=== PATIENT | female | born 1970 | race Caucasian/White ===

== ENCOUNTER 2016-12-27 07:58 | Day surgery (SDC) | payer OTHER ==
[~2016-12-27] VITALS: Ht 154.9 cm; Wt 74.5 kg
[~2016-12-27 07:58] MED LIST: AMLO5TAB2 PO; PERC5TAB12 PO; ZOFR4TAB3 SL
[2016-12-27] MEDS ORDERED: SODIUM CHLOR 0.9% 1000 ML IV SCH (08:15)
[2016-12-27 08:16] VITALS: BP 175/107; PULSE 67; RESP 20; TEMP 97.8; O2SAT 97
[2016-12-27] MEDS ORDERED: LIDOCAINE HCL 1% 20 ML VIAL ONE (09:07)
[2016-12-27] MEDS ORDERED: SODIUM BICARBONATE 8.4% INJ 50 ML ONE (09:08)
[2016-12-27] MEDS ORDERED: fentaNYL CITRATE 250 MCG/5 ML AMP ONE (09:29)
[2016-12-27] MEDS ORDERED: MIDAZOLAM HCL 5 MG/5 ML VIAL ONE (09:29)
[2016-12-27 10:55] VITALS: BP 160/85; PULSE 57; RESP 20; TEMP 97.6; O2SAT 93
--- NOTE | 2016-12-27 11:02 | PD.RAD ---
Post CT Procedure Prog Note Pre Procedure Diagnosis: (1) Renal cyst, left Post Procedure Diagnosis: (1) Renal cyst, left Procedure Date: December 27, 2016 Supervising Radiologist: Sander Dyer Proceduralist/Assist: Eleanor Chavez RT(R)(CT) Estimated blood loss: Minimal Anesthesia: Conscious Sedation Plan of Activity Patient to Unit: ROPU Patient Condition: Good See PACS Report for procedural detail/treatment Drainage Procedure Procedure 1 Imaging Guidance: CT Side: Left Procedure Type: Aspiration (and slcerosis) [place]: 8 ([place]) Fluid Removal (CCs): 200 Fluid Description: Clear, Yellow, Simple Sander Dyer MD December 27, 2016 11:02
[2016-12-27 11:10] VITALS: BP 150/87; PULSE 57; RESP 20; O2SAT 93
[2016-12-27] MEDS ORDERED: oxyCODONE/ACETAMINOPHEN 5 MG/325 MG TAB PO PRN (11:15)
[2016-12-27 11:40] VITALS: BP 123/64; PULSE 63; RESP 16; O2SAT 97
[2016-12-27 12:10] VITALS: BP 132/67; PULSE 61; RESP 16; O2SAT 96
[2016-12-27 12:40] VITALS: BP 159/93; PULSE 65; RESP 16; O2SAT 98
--- NOTE | 2016-12-27 12:42 | RADRPT ---
EXAM DATE/TIME: 12/27/2016 09:32 [place] COMPARISON: No previous studies available for comparison. INDICATIONS : Left renal cyst. SEDATION TIME: 30 minutes MEDICATION(S): 1.) 3 mg midazolam (Versed) IV 2.) 150 mcg fentanyl (Sublimaze) IV DEVICE(S): 1.) 18 gauge Sands blunt needle 10cm 2.) 8 Fr Rao FLUID: Total volume of 200 cc of clear, yellow fluid was removed. Fluid was discarded. MEDICAL HISTORY : left renal cyst SURGICAL HISTORY : Tubal ligation. ENCOUNTER: Initial ACUITY: 1 day PAIN SCORE: 0/10 LOCATION: Left kidney PROCEDURE: 1.) Conscious sedation with continuous EKG and oximetry monitoring. 2.) EKG and oximetry remained stable throughout the procedure. PROCEDURE : CT guided left renal cyst aspiration and sclerosis. The risks, benefits and alternatives to the procedure were explained and verbal and written consent w as obtained. Using automated exposure control and adjustment of the mA and/or kV according to patien t size, radiation dose was kept as low as reasonably achievable to obtain optimal diagnostic quality images. The site was prepped in sterile fashion. Full sterile technique was used, including cap, ma sk, sterile gloves and gown and a large sterile sheet. Hand hygiene and 2% chlorhexidine and/or beta dine/alcohol prep was utilized per protocol for cutaneous antisepsis. The skin and subcutaneous tiss ues were infiltrated with local anesthetic solution. There are 2 adjacent cysts at the left lower pole kidney versus large cyst with a septation. An 18 ga uge Sands needle was advanced into the cyst cavity under CT guidance. Over a guidewire an 8 Arabic catheter was advanced into the fluid collection approximately 200 cc of clear simple yellow fluid was removed. A small amount of fluid remained. Approximately 100 mL of a Betadine solution was injected into the cyst cavity and the remaining for approximately 30 minutes prior to decompression. Post proc edure imaging demonstrates most of the cyst cavity to be collapsed with a small amount of contrast an d fluid remaining. The residual cyst cavity measures approximately 5 x 3 cm. The adjacent cystic lesi on in the lower pole remains unchanged at 4.4 cm. There were no immediate complications and patient t olerated the procedure well. CONCLUSION: Uncomplicated aspiration and Betadine sclerosis of a large left lower pole renal cyst. Approximately 200 mL of fluid was aspirated and sent for cytology evaluation. Sander Dyer MD on December 27, 2016 at 11:43 Board Certified Radiologist. This report was verified electronically.
== END 2016-12-27 13:05 | disposition home or self-care (01) ==
LOC: HRAD 07:58 → HRIP 07:59 → HRAD 13:05
PROVIDERS: ATTEND Urology
DX: N28.1 Cyst of kidney, acquired (principal)
CPT/HCPCS: 50390; 77012; 99152; 99153; C1729; C1769; J2250; J3010; J7030